=== PATIENT | male | born 1985 | race African-American/Black ===

== ENCOUNTER 2022-11-23 17:30 | Inpatient (IN) | payer BC ==
[2022-11-23 20:31] VITALS: BMI 29.5
[2022-11-23] MEDS ORDERED: BISMUTH SUBSALICYLATE 524 MG/30 ML PO PRN (23:48)
[2022-11-23] MEDS ORDERED: BENZONATATE 200 MG CAPSULE PO PRN (23:48)
[2022-11-23] MEDS ORDERED: IBUPROFEN 400 MG TABLET (FP) PO PRN (23:48)
[2022-11-23] MEDS ORDERED: hydrOXYzine PAMOATE 25 MG CAPSULE (FP) PO PRN (23:48)
[2022-11-23] MEDS ORDERED: BENZOCAINE/MENTHOL (CHLORASEPTIC ) LOZENGE MM PRN (23:48)
[2022-11-23] MEDS ORDERED: POLYETHYLENE GLYCOL (HEALTHYLAX) 3350 17 GM PACKET PO PRN (23:48)
[2022-11-23] MEDS ORDERED: MAGNESIUM HYDROX 2400MG/30ML ORAL SUSPENSION 30 ML CUP PO PRN (23:48)
[2022-11-23] MEDS ORDERED: LOPERAMIDE HCL 2 MG CAPSULE PO PRN (23:48)
[2022-11-23] MEDS ORDERED: MAG HYDROX/AL HYDROX/SIMETH 30 ML UNIT-DOSE CUP PO PRN (23:48)
[2022-11-23] MEDS ORDERED: DICYCLOMINE HCL 10 MG CAPSULE PO PRN (23:48)
[2022-11-23] MEDS ORDERED: NICOTINE POLACRILEX 2 MG GUM BUC PRN (23:48)
[2022-11-23] MEDS ORDERED: ONDANSETRON *ODT* 4 MG TABLET SL PRN (23:48)
[2022-11-23] MEDS ORDERED: METHOCARBAMOL 500 MG TABLET PO PRN (23:48)
[2022-11-23] MEDS ORDERED: ACETAMINOPHEN 325 MG TABLET (FP) PO PRN (23:48)
[2022-11-23] MEDS ORDERED: IBUPROFEN 600 MG TABLET (FP) PO PRN (23:48)
[2022-11-23] MEDS ORDERED: guaiFENesin 600 MG TABLET.ER (FP) PO PRN (23:48)
[2022-11-23] MEDS ORDERED: P-EPHED 60MG/TRIPROLIDI 2.5MG TABLET PO PRN (23:48)
[2022-11-24] MEDS ORDERED: PRENATAL VITAMINS W/ FOLIC ACID TABLET (FP) PO SCH (10:00)
[2022-11-24] MEDS ORDERED: COLLOIDAL OATMEAL 1 BAR EACH TP PRN (10:46)
[2022-11-24 16:58] VITALS: BP 114/67; PULSE 73; RESP 20; TEMP 97.8
[2022-11-24] MEDS ORDERED: THIAMINE HCL 100 MG TABLET (FP) PO SCH (22:00)
[2022-11-24] MEDS ORDERED: MELATONIN 5 MG TABLETS PO SCH (22:00)
== END 2022-11-24 18:24 | disposition home or self-care (01) | DRG 774 ==
LOC: YASAS 17:30 → Y3N 23:53
PROVIDERS: ADMIT Allergy & Immunology; ATTEND Surgery
PROC: HZ2ZZZZ Detoxification Services for Substance Abuse Treatment (ICD-10-PCS; principal; 2022-11-23)
DX: F14.10 Cocaine abuse, uncomplicated (principal); F10.10 Alcohol abuse, uncomplicated; F12.20 Cannabis dependence, uncomplicated; F17.210 Nicotine dependence, cigarettes, uncomplicated; F10.280 Alcohol dependence with alcohol-induced anxiety disorder; F43.10 Post-traumatic stress disorder, unspecified; F90.9 Attention-deficit hyperactivity disorder, unspecified type
CPT/HCPCS: 87635

== ENCOUNTER 2022-12-15 17:41 | Inpatient (IN) | payer BC ==
[2022-12-15 18:12] VITALS: BMI 30.2
[2022-12-15] MEDS ORDERED: BISMUTH SUBSALICYLATE 524 MG/30 ML PO PRN (18:53)
[2022-12-15] MEDS ORDERED: MAG HYDROX/AL HYDROX/SIMETH 30 ML UNIT-DOSE CUP PO PRN (18:53)
[2022-12-15] MEDS ORDERED: POLYETHYLENE GLYCOL (HEALTHYLAX) 3350 17 GM PACKET PO PRN (18:53)
[2022-12-15] MEDS ORDERED: NALOXONE HCL 0.4 MG/ML VIAL IM PRN (18:53)
[2022-12-15] MEDS ORDERED: BENZONATATE 200 MG CAPSULE PO PRN (18:53)
[2022-12-15] MEDS ORDERED: IBUPROFEN 600 MG TABLET (FP) PO PRN (18:53)
[2022-12-15] MEDS ORDERED: IBUPROFEN 400 MG TABLET (FP) PO PRN (18:53)
[2022-12-15] MEDS ORDERED: hydrOXYzine PAMOATE 25 MG CAPSULE (FP) PO PRN (18:53)
[2022-12-15] MEDS ORDERED: NALOXONE HCL (KLOXXADO) 8 MG SPRAY NS PRN (18:53)
[2022-12-15] MEDS ORDERED: BENZOCAINE/MENTHOL (CHLORASEPTIC ) LOZENGE MM PRN (18:53)
[2022-12-15] MEDS ORDERED: DICYCLOMINE HCL 10 MG CAPSULE PO PRN (18:53)
[2022-12-15] MEDS ORDERED: guaiFENesin 600 MG TABLET.ER (FP) PO PRN (18:53)
[2022-12-15] MEDS ORDERED: LOPERAMIDE HCL 2 MG CAPSULE PO PRN (18:53)
[2022-12-15] MEDS ORDERED: MAGNESIUM HYDROX 2400MG/30ML ORAL SUSPENSION 30 ML CUP PO PRN (18:53)
[2022-12-15] MEDS ORDERED: ONDANSETRON *ODT* 4 MG TABLET SL PRN (18:53)
[2022-12-15] MEDS: MELATONIN 5 MG TABLETS PO SCH (22:24)
[2022-12-15] MEDS: THIAMINE HCL 100 MG TABLET (FP) PO SCH (22:24)
[2022-12-15] MEDS: METHOCARBAMOL 500 MG TABLET PO PRN (22:24)
[2022-12-16] MEDS ORDERED: diazePAM 5 MG TABLET PO PRN (10:06)
[2022-12-16] MEDS ORDERED: COLLOIDAL OATMEAL 1 BAR EACH TP PRN (10:07)
[2022-12-16] MEDS: PRENATAL VITAMINS W/ FOLIC ACID TABLET (FP) PO SCH (10:20)
[2022-12-16 10:26] LABS: HEMATOCRIT 48.8 % (35.4-49); HEMOGLOBIN 15.7 GM/dL (11.7-16.9); MCH 30.1 pg (25.7-33.7); MCHC 32.2 g/dl (32.0-35.9); MEAN CELL VOLUME 93.5 fl (80-96); MEAN PLT VOLUME 9.3 fl (7.5-11.1); PLATELET COUNT 286 10^3/uL (134-434); RBC 5.22 M/mm3 (4.00-5.60); RDW 15.6 % (11.9-15.9); WHITE BLOOD COUNT 5.6 K/mm3 (4.0-10.0)
[2022-12-16] MEDS: diazePAM 5 MG TABLET PO SCH ×3 (10:35→22:32)
[2022-12-16 11:29] LABS: POTASSIUM 4.9 mmol/L (3.5-5.1)
[2022-12-16 11:33] LABS: BLOOD UREA NITROGEN 16.6 mg/dL (7-18)
[2022-12-16 11:34] LABS: ALBUMIN 3.5 g/dl (3.4-5.0)
[2022-12-16 11:38] LABS: BILIRUBIN,TOTAL 0.6 mg/dL (0.2-1)
[2022-12-16] MEDS: QUEtiapine FUMARATE 50 MG TABLET PO SCH (11:52)
[2022-12-16] MEDS: DIVALPROEX SODIUM 250 MG TABLET E.C. PO SCH ×2 (11:52→22:31)
[2022-12-16] MEDS: THIAMINE HCL 100 MG TABLET (FP) PO SCH (22:31)
[2022-12-16] MEDS: MELATONIN 5 MG TABLETS PO SCH (22:31)
[2022-12-16] MEDS: QUEtiapine FUMARATE 100 MG TABLET (FP) PO SCH (22:32)
[2022-12-16] MEDS: METHOCARBAMOL 500 MG TABLET PO PRN (22:32)
[2022-12-16] MEDS: PRAZOSIN HCL 1 MG CAPSULE PO SCH (22:33)
[2022-12-17] MEDS: diazePAM 5 MG TABLET PO SCH ×4 (05:50→22:01)
[2022-12-17] MEDS: QUEtiapine FUMARATE 50 MG TABLET PO SCH (09:48)
[2022-12-17] MEDS: PRENATAL VITAMINS W/ FOLIC ACID TABLET (FP) PO SCH (09:48)
[2022-12-17] MEDS: DIVALPROEX SODIUM 250 MG TABLET E.C. PO SCH ×2 (09:48→22:00)
[2022-12-17] MEDS: METHOCARBAMOL 500 MG TABLET PO PRN (22:00)
[2022-12-17] MEDS: THIAMINE HCL 100 MG TABLET (FP) PO SCH (22:00)
[2022-12-17] MEDS: MELATONIN 5 MG TABLETS PO SCH (22:00)
[2022-12-17] MEDS: QUEtiapine FUMARATE 100 MG TABLET (FP) PO SCH (22:00)
[2022-12-17] MEDS: PRAZOSIN HCL 1 MG CAPSULE PO SCH (22:25)
[2022-12-18] MEDS: diazePAM 5 MG TABLET PO SCH ×3 (06:00→22:51)
[2022-12-18] MEDS: DIVALPROEX SODIUM 250 MG TABLET E.C. PO SCH ×2 (09:41→22:50)
[2022-12-18] MEDS: PRENATAL VITAMINS W/ FOLIC ACID TABLET (FP) PO SCH (09:41)
[2022-12-18] MEDS: QUEtiapine FUMARATE 50 MG TABLET PO SCH (09:41)
[2022-12-18] MEDS: METHOCARBAMOL 500 MG TABLET PO PRN (12:39)
[2022-12-18] MEDS: ACETAMINOPHEN 325 MG TABLET (FP) PO PRN (12:39)
[2022-12-18] MEDS: MELATONIN 5 MG TABLETS PO SCH (22:50)
[2022-12-18] MEDS: QUEtiapine FUMARATE 100 MG TABLET (FP) PO SCH (22:51)
[2022-12-18] MEDS: PRAZOSIN HCL 1 MG CAPSULE PO SCH (22:51)
[2022-12-18] MEDS: THIAMINE HCL 100 MG TABLET (FP) PO SCH (22:51)
[2022-12-19] MEDS: ACETAMINOPHEN 325 MG TABLET (FP) PO PRN (05:52)
[2022-12-19] MEDS ORDERED: diazePAM 5 MG TABLET PO SCH (06:00)
[2022-12-19 08:33] VITALS: BP 139/88; PULSE 84; RESP 17; TEMP 98.1
[2022-12-19] MEDS: DIVALPROEX SODIUM 250 MG TABLET E.C. PO SCH (09:24)
[2022-12-19] MEDS: PRENATAL VITAMINS W/ FOLIC ACID TABLET (FP) PO SCH (09:24)
[2022-12-19] MEDS: QUEtiapine FUMARATE 50 MG TABLET PO SCH (09:24)
[2022-12-20] MEDS ORDERED: diazePAM 5 MG TABLET PO ONE (06:00)
== END 2022-12-19 12:10 | disposition home or self-care (01) | DRG 774 ==
LOC: YASAS 17:41 → Y3N 19:13
PROVIDERS: ADMIT Allergy & Immunology; ATTEND Surgery
PROC: HZ2ZZZZ Detoxification Services for Substance Abuse Treatment (ICD-10-PCS; principal; 2022-12-15)
DX: F10.230 Alcohol dependence with withdrawal, uncomplicated (principal); F14.20 Cocaine dependence, uncomplicated; F17.210 Nicotine dependence, cigarettes, uncomplicated; F19.282 Other psychoactive substance dependence with psychoactive substance-induced sleep disorder; F19.24 Other psychoactive substance dependence with psychoactive substance-induced mood disorder; F39 Unspecified mood [affective] disorder; F41.9 Anxiety disorder, unspecified; F32.A Depression, unspecified; F43.10 Post-traumatic stress disorder, unspecified; I10 Essential (primary) hypertension; J45.909 Unspecified asthma, uncomplicated; Z62.810 Personal history of physical and sexual abuse in childhood; Z56.0 Unemployment, unspecified; Z59.00 Homelessness unspecified
CPT/HCPCS: 36415; 80053; 80164; 85027; 86780; 87635